=== PATIENT | male | born 1995 | race Two or more races ===

== ENCOUNTER 2022-04-29 17:54 | Emergency (ER) | payer MEDICAID ==
[2022-04-29] MEDS ORDERED: HYDROmorphone 1 MG/ML Syringe IVPUSH STA (18:07)
[2022-04-29] MEDS ORDERED: Ondansetron 4 MG/2 ML SDV IVPUSH ONE (18:07)
[2022-04-29] MEDS ORDERED: Sodium Chloride 0.9% 1,000 ML IV SCH (18:15)
[2022-04-29] MEDS ORDERED: Polyethylene Glycol 3350 Powder 17 GM Packet PO ONE (19:27)
[2022-04-29] MEDS ORDERED: Dicyclomine 10 MG Cap PO ONE (19:31)
[2022-04-29] MEDS ORDERED: Ketorolac 30 MG/ML SDV IVPUSH ONE (19:31)
== END 2022-04-29 20:30 | disposition home or self-care (01) ==
LOC: JD.ED 17:54
DX: K59.09 Other constipation (principal); I10 Essential (primary) hypertension
CPT/HCPCS: 36415; 74176; 80053; 81001; 83690; 85025; 96361; 96374; 96375; 99284; A9270; J1170; J1885; J2405; J7030

== ENCOUNTER 2022-10-27 17:48 | Emergency (ER) | payer MEDICAID ==
[2022-10-27] MEDS ORDERED: Diphtheria,Pertussis(Acell),Tetanus Vaccine 0.5 ML Syringe IM ONE (18:13)
== END 2022-10-27 19:10 | disposition home or self-care (01) ==
LOC: JD.ED 17:48
DX: S61.431A Puncture wound without foreign body of right hand, initial encounter (principal); I10 Essential (primary) hypertension; J45.909 Unspecified asthma, uncomplicated; Z23 Encounter for immunization; W29.4XXA Contact with nail gun, initial encounter; Y92.89 Other specified places as the place of occurrence of the external cause; Y99.0 Civilian activity done for income or pay
CPT/HCPCS: 73130-26-RT; 73130-RT; 90471; 90715; 99283; 99283-25

== ENCOUNTER 2023-08-20 16:15 | Emergency (ER) | payer SELFPAY ==
[2023-08-20] MEDS: Sodium Chloride 0.9% 1,000 ML IV SCH (17:10)
[2023-08-20] MEDS: HYDROmorphone 0.5 MG/0.5 ML Syringe IVPUSH ONE (17:10)
[2023-08-20] MEDS: Sodium Chloride 0.9% 10 ML Syringe FLUSH PRN (17:10)
[2023-08-20] MEDS: Ondansetron 4 MG/2 ML SDV IVPUSH ONE (17:10)
[2023-08-20] MEDS: Pantoprazole 40 MG Vial IVPUSH ONE (17:10)
[2023-08-20 17:18] LABS: BASOPHILS PERCENT AUTO 0.2 % (0.0-1.0); EOSINOPHILS ABSOLUTE AUTO 0.1 K/mm3 (0.0-0.4); EOSINOPHILS PERCENT AUTO 0.5 % (0.0-6.0); HEMATOCRIT 44.7 % (42.0-52.0); HEMOGLOBIN 16.2 gm/dl (14.0-18.0); IMMATURE GRAN ABSOLUTE AUTO 0.03 K/mm3 (0.00-0.05); IMMATURE GRAN PERCENT AUTO 0.3 % (0.0-0.4); LYMPHOCYTES ABSOLUTE AUTO 0.6 K/mm3 (1.0-4.8); LYMPHOCYTES PERCENT AUTO 5.6 % (24.0-44.0); MEAN CORPUSCULAR HEMOGLOBIN 32.3 pg (28.0-32.0); MEAN CORPUSCULAR HGB CONC 36.2 g/dl (32.0-36.0); MEAN CORPUSCULAR VOLUME 89.2 fl (83.0-99.0); MEAN PLATELET VOLUME 10.6 fl (9.4-12.4); MONOCYTES ABSOLUTE AUTO 0.8 K/mm3 (0.0-0.8); NEUTROPHILS ABSOLUTE AUTO 9.3 K/mm3 (1.8-7.7); NEUTROPHILS PERCENT AUTO 86.4 % (41.0-71.0); PLATELET COUNT,PLT 202 K/mm3 (150-400); RED BLOOD CELL COUNT 5.01 M/mm3 (4.52-5.90)
[2023-08-20 17:41] LABS: A/G RATIO 1.1 (1-2); ALBUMIN 4.4 g/dl (3.4-5.0); ANION GAP 14.2 (5-15); BILIRUBIN TOTAL 0.9 mg/dL (0.2-1.0); BUN/CREATININE RATIO 6.7 (14-18); C-REACTIVE PROTEIN 3.46 mg/dL (<0.30); CALCIUM 9.5 mg/dL (8.5-10.1); CREATININE 1.2 mg/dL (0.7-1.3); EST CRCL DRUG DOSING (CG) 83.42 mL/min; POTASSIUM,K 4.2 mEq/L (3.5-5.1); PROTEIN TOTAL,TP 8.4 g/dl (6.4-8.2)
[2023-08-20 17:59] LABS: APPEARANCE,URINE CLEAR (Clear); BILIRUBIN,URINE NEGATIVE (Negative); COLOR,URINE LIGHT YELLOW (Yellow); GLUCOSE,URINE NEGATIVE (Negative); KETONES,URINE NEGATIVE (Negative); LEUKOCYTE ESTERASE,URINE NEGATIVE (Negative); NITRITE,URINE NEGATIVE (Negative); OCCULT BLOOD,URINE TRACE-INTACT (Negative); PROTEIN,URINE NEGATIVE (Negative); UROBILINOGEN,URINE 0.2 (0.2-1.0)
[2023-08-20 18:15] LABS: BACTERIA,URINE OCCASIONAL /hpf (FEW); MUCUS,URINE FEW /hpf (FEW); RBC,URINE 0-5 /hpf (0-5); SQUAMOUS EPITHELIAL CELLS,UR NOT SEEN /hpf (0-5); WBC,URINE 0-5 /hpf (0-5)
[2023-08-20 18:30] LABS: CORONAVIRUS COVID-19 NAA NEGATIVE (NEGATIVE); INFLUENZA A NAA NEGATIVE (NEGATIVE); RESPIRATORY SYNCYTIAL VIR NAA NEGATIVE (NEGATIVE)
== END 2023-08-20 19:14 | disposition home or self-care (01) ==
LOC: JD.ED 16:15
DX: R07.9 Chest pain, unspecified (principal); R10.10 Upper abdominal pain, unspecified; J06.9 Acute upper respiratory infection, unspecified; I10 Essential (primary) hypertension; J45.909 Unspecified asthma, uncomplicated; Z86.16 Personal history of COVID-19
CPT/HCPCS: 0241U; 36415; 71045; 80053; 81001; 83690; 84484; 85025; 86140; 93005; 96361; 96374; 96375; 99285; C9113; J1170; J2405; J3490; J7030; 93010; 99284

== ENCOUNTER 2023-12-27 06:32 | Emergency (ER) | payer OTHER ==
[2023-12-27 07:16] LABS: BASOPHILS PERCENT AUTO 0.7 % (0.0-1.0); EOSINOPHILS ABSOLUTE AUTO 0.2 K/mm3 (0.0-0.4); EOSINOPHILS PERCENT AUTO 3.9 % (0.0-6.0); HEMATOCRIT 45.6 % (42.0-52.0); HEMOGLOBIN 16.3 gm/dl (14.0-18.0); IMMATURE GRAN ABSOLUTE AUTO 0.02 K/mm3 (0.00-0.05); IMMATURE GRAN PERCENT AUTO 0.4 % (0.0-0.4); LYMPHOCYTES ABSOLUTE AUTO 2.1 K/mm3 (1.0-4.8); LYMPHOCYTES PERCENT AUTO 39.2 % (24.0-44.0); MEAN CORPUSCULAR HEMOGLOBIN 32.1 pg (28.0-32.0); MEAN CORPUSCULAR HGB CONC 35.7 g/dl (32.0-36.0); MEAN CORPUSCULAR VOLUME 89.8 fl (83.0-99.0); MEAN PLATELET VOLUME 10.9 fl (9.4-12.4); MONOCYTES ABSOLUTE AUTO 0.4 K/mm3 (0.0-0.8); NEUTROPHILS ABSOLUTE AUTO 2.6 K/mm3 (1.8-7.7); NEUTROPHILS PERCENT AUTO 47.8 % (41.0-71.0); PLATELET COUNT,PLT 186 K/mm3 (150-400); RED BLOOD CELL COUNT 5.08 M/mm3 (4.52-5.90); WHITE BLOOD CELL COUNT,WBC 5.38 K/mm3 (3.9-11.3)
[2023-12-27 07:49] LABS: A/G RATIO 1.2 (1-2); ALBUMIN 4.1 g/dl (3.4-5.0); ANION GAP 11.7 (5-15); BILIRUBIN TOTAL 0.4 mg/dL (0.2-1.0); CALCIUM 8.6 mg/dL (8.5-10.1); EST CRCL DRUG DOSING (CG) 100.13 mL/min; POTASSIUM,K 3.7 mEq/L (3.5-5.1); PROTEIN TOTAL,TP 7.4 g/dl (6.4-8.2)
[2023-12-27] MEDS: Sodium Chloride 0.9% 1,000 ML IV ONE (09:03)
[2023-12-27] MEDS: Ketorolac 15 MG/ML SDV IVPUSH ONE (09:03)
[2023-12-27] MEDS: Sodium Chloride 0.9% 10 ML Syringe FLUSH PRN (09:04)
== END 2023-12-27 09:38 | disposition home or self-care (01) ==
LOC: JD.ED 06:32
DX: R51.9 Headache, unspecified (principal); I10 Essential (primary) hypertension; Z86.16 Personal history of COVID-19
CPT/HCPCS: 36415; 70450; 80053; 82947; 85025; 96374; 99284; J1885; J3490; J7030

== ENCOUNTER 2024-04-29 20:53 | Emergency (ER) | payer OTHER ==
[2024-04-29] MEDS: Lidocaine 1% 10 ML MDV INJECT ONE (23:37)
== END 2024-04-29 23:44 | disposition home or self-care (01) ==
LOC: JD.ED 20:53
DX: S61.012A Laceration without foreign body of left thumb without damage to nail, initial encounter (principal); W26.0XXA Contact with knife, initial encounter; Y93.89 Activity, other specified
CPT/HCPCS: 12001; 99282; J3490